=== PATIENT | male | born 1995 | race Two or more races ===

== ENCOUNTER 2023-09-27 10:31 | Emergency (ER) | payer OTHER, SELFPAY ==
[2023-09-27 10:40] VITALS: BP 141/96; PULSE 72; RESP 18; TEMP 36.2; O2SAT 97; BMI 26.6
[2023-09-27 13:01] LABS: MANUAL DIFF FLAG NO
[2023-09-27 13:02] LABS: Basophils Absolute Auto 0.1 X10*3/uL (0.0-0.2); Basophils Percent Auto 0.7 % (0-2); Eosinophils Absolute Auto 0.3 X10*3/uL (0.0-0.4); Eosinophils Percent Auto 3.9 % (0-4); Hematocrit 46.8 % (42.0-52.0); Imm Gran Abs Auto 0.11 X10*3/uL (0.00-0.03); Imm Gran Pct Auto 1.4 % (0.0-0.4); Lymphocytes Absolute Auto 2.5 X10*3/uL (1.2-4.9); Mean Corpuscular HGB Conc 34.2 g/dl (31.0-36.0); Mean Corpuscular Hemoglobin 31.6 pg (27.0-33.0); Mean Corpuscular Volume 92.3 fL (80.0-98.0); Mean Platelet Volume 9.5 fL (9.4-12.4); Monocytes Absolute Auto 0.6 X10*3/uL (0.1-1.2); Monocytes Percent Auto 7.5 % (2-11); Neutrophils Absolute Auto 4.1 x10*3/uL (2.0-8.3); Neutrophils Percent Auto 53.5 % (45-73); Platelet Count 284 X10*3/uL (160-400); Red Blood Count 5.07 X10*6/uL (4.60-5.80); Red Cell Distribution Width 11.8 % (11.0-16.0); White Blood Count 7.6 X10*3/uL (4.8-10.8)
--- NOTE | 2023-09-27 13:18 | ED_ITS ---
HPI - General Adult General Chief complaint: Skin/Abscess/Foreign Body Stated complaint: swollen face Time Seen by Provider: 09/27/23 11:47 Source: patient Mode of arrival: ambulatory Limitations: no limitations History of Present Illness ED Provider: ANA BOWLES PA-C HPI narrative: 27 year old male with no significant pmhx presents to the ED today for evaluation of facial swelling x2 days. Report pruritic facial rash that began yesterday. He has been taking benadryl at home with minimal relief. His last dose was a few hours prior to arrival in ED. Denies known allergies. Denies new soaps/ lotions/ detergents. Denies new medications/ recent medication changes. Admits to being outdoors in a wooded area over the weekend. He denies any known tick or insect bites. Additionally endorses fishing in an area noted to have poison nimo. He is unsure of whether or not he came into contact with this. Admits to small area of itchy bumps to his right ring finger. Denies fever, chills, tongue discomfort, dyspnea, sob, wheezing, throat closing sensation, N/V, rashes elsewhere. Related Data Previous Rx's ?Medication ?Instructions ?Recorded amoxicillin 875 mg-potassium 1 tab PO Q12H 7 days #14 tabs 09/27/23 clavulanate 125 mg tablet diphenhydramine HCl 50 mg tablet 50 mg PO Q8H PRN itching #14 tabs 09/27/23 (Benadryl Allergy) prednisone 10 mg tablet See Taper PO DIRECTED #12 tabs 09/27/23 Allergies Allergy/AdvReac Type Severity Reaction Status Date / Time No Known Allergies Allergy Verified 09/27/23 10:46 [No Known Allergies*] Review of Systems 2 Review of Systems: Constitutional: No fever, chills, fatigue, night sweats, weight changes ENT/Mouth: No ear pain, hearing loss, nasal congestion, sinus pain, rhinorrhea, sore throat, +facial swelling Eyes: No eye pain, swelling, redness, vision changes, discharge Cardio: No chest pain, palpitations, SANDERS, orthopnea, peripheral edema Pulm: No SOB, cough, sputum, wheezing, dyspnea, hemoptysis GI: No nausea, vomiting, hematemesis, abdominal pain, diarrhea, constipation, hematochezia, melena : No irregular bleeding, dysuria, frequency, urgency, hesitancy, hematuria, flank pain, urinary flow changes, urinary incontinence or retention MSK: No back pain, neck pain, joint pain, myalgias Skin: No lesions, +rashes Neuro: No weakness, numbness, paresthesias, LOC, dizziness, headache Psych: No anxiety/panic, depression, SI/HI, AH/VH All other systems reviewed and are negative. [facility] Past Medical History Attestation statement: The following information was validated with the patient. Source: old records reviewed and nursing notes reviewed Social History Social History Alcohol intake: current Alcohol intake frequency: a few times a week Smoked in Last 30 Days: Yes Any prior treatment program specific to substance use: No Advance Directives: No Do you have a plan to hurt others: No Plan Physical Exam ED Vital Signs: Vital Signs - 24 hr 09/27/23 10:40 09/27/23 14:00 09/27/23 15:36 Temperature 97.2 F 97.3 F 98.0 F Pulse Rate 72 73 73 Respiratory Rate 18 15 16 Blood Pressure 141/96 H 149/100 H 152/87 H Pulse Oximetry 97 100 100 Oxygen Delivery Method Room Air Room Air Room Air BMI result Body Mass Index 26.6 Patient slightly hypertensive, vitals otherwise wnl. not hypoxic. Const General: cooperative, healthy appearing, comfortable and no acute distress Orientation/consciousness: patient oriented x3 Limitations: no limitations HENMT Other: + see photo below Ears: hearing grossly normal bilaterally Mouth: Normal oral and palatal mucosa present, lip normal and tongue normal Throat: Yes posterior oropharynx normal Eyes Other: + refer to photo below + noted bilateral periorbital swelling with erythema and excoriations. no ocular involvement. no conjunctival injection. EOMs intact without pain. Neck Neck: Yes normal visual inspection and Yes full ROM Resp Effort & Inspection: normal respiratory effort and able to speak in complete sentences Auscultation: clear to auscultation bilaterally Cardio Rate: regular rate Rhythm: regular rhythm GI Inspection: Yes normal to inspection Palpation (GI): Soft to palpation and nontender Skin Other: + refer to photo above. noted erythematous rash noted to face with excoriations. no sloughing. no involvement of mucous membranes, webbed spaces, palms/ soles. no target lesions. no dermatomal pattern. Neuro General: patient oriented x3 Course Course Course Narrative: 1520-- CBC without leukocytosis or left shift. no anemia, h&h stable. no eosinophilia. chemistry without acute electrolyte abnormality requiring intervention. lyme/ tick panel pending. > on re-evaluation, there has been improvement in facial swelling following pepcid/benadryl/solumedrol. erythema has resolved. concern for allergic reaction vs poison nimo. i do not suspect preorbital or orbital cellulitis. at this time i feel patient is stable for discharge which he is agreeable with. will send patient home with prednisone taper, benadryl and augmentin for coverage. Patient has remained stable throughout ED visit today. Discussed worrisome signs and symptoms and when to return to the ED. All questions answered at this time. Patient is agreeable with disposition and stable for discharge. Medications Administered Discontinued Medications Generic Name Dose Route Start Last Admin Trade Name Freq PRN Reason Stop Dose Admin Diphenhydramine HCl 25 mg 09/27/23 12:29 09/27/23 13:44 Diphenhydramine Hcl 50 Mg/Ml Vial IVPUSH 09/27/23 12:30 25 mg ONCE ONE Administration Famotidine 20 mg 09/27/23 12:29 09/27/23 13:44 Famotidine/Pf 20 Mg/2 Ml Vial IVPUSH 09/27/23 12:30 20 mg ONCE ONE Administration Methylprednisolone Sodium Succinate 125 mg 09/27/23 12:29 09/27/23 13:44 Methylprednisolone Sod Succ 125 Mg/2 Ml Vial IVPUSH 09/27/23 12:30 125 mg ONCE ONE Administration Medical Decision Making Medical Decision Making [facility] Narrative: 27 year old male with no significant pmhx presents to the ED today for evaluation of facial swelling x2 days. Patient slightly hypertensive, vitals otherwise wnl. He is nontoxic appearing and in NAD. On exam, noted erythematous rash noted to face with excoriations. no sloughing. no involvement of mucous membranes, webbed spaces, palms/ soles. no target lesions. no dermatomal pattern. no ocular involvement. no conjunctival injection. EOMs intact without pain. lungs are CTA bilaterally. airway patent. posterior oropharynx wnl. tongue and lips normal. Differential diagnosis includes anemia, electrolyte abnormality, allergic reaction, poison nimo, lyme, tick bourne illness. Unlikely pre orbital or orbital cellulitis. Unlikely SJS/TEN, medication reaction, herpes zoster/ simplex, HFM disease, anaphylaxis, angioedema. Plan for basic labs, meds, re-evaluation. Differential Diagnosis Differential Diagnoses: The differential diagnosis associated with the presentation includes as above Admission/Observation Not indicated Lab Data MDM Lab Attestation statement: I reviewed the patient's lab results. as above 09/27/23 12:49 09/27/23 12:49 Labs: Lab Results 09/27/23 Range/Units 12:49 WBC 7.6 (4.8-10.8) X10*3/uL RBC 5.07 (4.60-5.80) X10*6/uL Hgb 16.0 (14.0-18.0) g/dl Hct 46.8 (42.0-52.0) % MCV 92.3 (80.0-98.0) fL MCH 31.6 (27.0-33.0) pg MCHC 34.2 (31.0-36.0) g/dl RDW 11.8 (11.0-16.0) % Plt Count 284 (160-400) X10*3/uL MPV 9.5 (9.4-12.4) fL Immature Gran % (Auto) 1.4 H (0.0-0.4) % Neut % (Auto) 53.5 (45-73) % Lymph % (Auto) 33.0 (20-40) % [place] % (Auto) 7.5 (2-11) % Eos % (Auto) 3.9 (0-4) % Baso % (Auto) 0.7 (0-2) % Lymph # (Auto) 2.5 (1.2-4.9) X10*3/uL [place] # (Auto) 0.6 (0.1-1.2) X10*3/uL Eos # (Auto) 0.3 (0.0-0.4) X10*3/uL Baso # (Auto) 0.1 (0.0-0.2) X10*3/uL Abs Immat Gran (auto) 0.11 H (0.00-0.03) X10*3/uL Absolute Neuts (auto) 4.1 (2.0-8.3) x10*3/uL Absolute Nucleated RBC 0.000 (0.0-0.012) X10*3/uL Nucleated RBC % (auto) 0.0 (0.0-0.2) /100WBC Sodium 139 (135-145) mmol/L Potassium 4.3 (3.3-5.1) mmol/L Chloride 106 (96-108) mmol/L Carbon Dioxide 24 (22-29) mmol/L Anion Gap 13 (12-20) BUN 13 (9-16) mg/dL Creatinine 0.96 (0.5-1.4) mg/dL Estim Creat Clear Calc 113.8 Estimated GFR > 60 Random Glucose 100 (60-115) mg/dL Calcium 9.1 (8.4-10.2) mg/dL Magnesium 2.2 (1.6-2.6) mg/dL External Record Review External record reviewed: Inpatient record Prescription Management I considered prescription management with: Antibiotic (augmentin) and Other (benadryl, prednisone) Social Determinants Patient?s care significantly limited by Social Determinants of Health including: Other Social Determinant of Health Critical Care Time Critical Care Time Critical Care Time: No Discharge Plan Discharge Clinical Impression: Facial swelling Patient Disposition: Home, Self-Care Instructions: Poison Nimo (ED), Allergies (ED), Cold Compress or Soak (ED), Allergy Testing (ED) Additional Instructions: Your blood work today is reassuring. Your blood was sent to the lab to check for lyme/ tick bourne pathology. You will be contacted with any abnormal results. The etiology of your facial swelling is unclear however improved with medications in ED today. A steroid taper of prednisone has been sent to your pharmacy. Take 40mg (4 tabs) x3 days Take 30mg (3 tabs) x3 days Take 20mg (2 tabs) x3 days Take 10mg (1 tab) x3 days Continue taking benadryl q8 hours for the next few days to help with swelling. Augmentin is an antibiotic that has been sent to your pharmacy for you to take for the next 7 days. take this to completion. Follow up with PCP. Return with new or worsening symptoms. In the case of an emergency call 911. Prescriptions: New prednisone 10 mg tablet See Taper PO DIRECTED Qty: 12 0RF Taper: Prednisone 40 mg daily for 3 Days and 0 Hour 30 mg daily for 3 Days and 0 Hour 20 mg daily for 3 Days and 0 Hour 10 mg daily for 3 Days and 0 Hour Rx Instructions: Take 40mg (4 tabs) for 3 days, 30mg (3 tabs) for 3 days, 20mg (2 tabs) for 3 days, and 10mg (1 tab) for 3 days. Benadryl Allergy 50 mg tablet 50 mg PO Q8H PRN (Reason: itching) Qty: 14 0RF amoxicillin-pot clavulanate 875-125 mg tablet 1 tab PO Q12H 7 Days Qty: 14 0RF Referrals: [facility] [Provider Group] [facility] [Provider Group] Vitor Meza MD [Physician] - Interventions: ED Discharge Assessment Last Done: 09/27/23 15:36 Discharge Date/Time: 09/27/23 15:37 Print Language: Malay
[2023-09-27 13:19] LABS: Anion Gap 13 (12-20); Blood Urea Nitrogen 13 mg/dL (9-16); Calcium 9.1 mg/dL (8.4-10.2); Carbon Dioxide 24 mmol/L (22-29); Chloride 106 mmol/L (96-108); Creatinine Clr Calc Pharmacy 113.8; Estimated Glomerular Filt Rate > 60; Glucose Random 100 mg/dL (60-115); Magnesium 2.2 mg/dL (1.6-2.6); Potassium 4.3 mmol/L (3.3-5.1); Sodium 139 mmol/L (135-145)
[2023-09-27] MEDS: methylPREDNISolone Sod Succ 125 MG/2 ML VIAL IVPUSH (13:44)
[2023-09-27] MEDS: Famotidine/PF 20 MG/2 ML VIAL IVPUSH (13:44)
[2023-09-27] MEDS: diphenhydrAMINE HCL 50 MG/ML VIAL 25 MG IVPUSH (13:44)
[2023-09-27 14:00] VITALS: BP 149/100; PULSE 73; RESP 15; TEMP 36.3; O2SAT 100
--- NOTE | 2023-09-27 15:35 | PC.NURSE ---
Report taken from Hemanth RN assumed care of pt at this time. PA to bedside for reeval, pt cleared for dc home with scripts.
[2023-09-27 15:36] VITALS: BP 152/87; PULSE 73; RESP 16; TEMP 36.7; O2SAT 100
[2023-09-28 18:02] LABS: Lyme Abs Screen <0.90 index
[2023-09-29 06:48] LABS: A. Phagocytphilium DNA,RT-PCR NOT DETECTED (NOT DETECTED); Babesia Microti DNA, RT-PCR NOT DETECTED (NOT DETECTED); Borrelia Miyamotoi,DNA RT-PCR NOT DETECTED (NOT DETECTED); E.Chaffeensis DNA RT-PCR NOT DETECTED (NOT DETECTED); Lyme(Borrelia ssp)DNA RT-PCR NOT DETECTED (NOT DETECTED)
== END 2023-09-27 15:37 | disposition home or self-care (01) ==
PROVIDERS: Physician Assistant Medical; Emergency Provider Emergency Medicine Emergency Medical Services
DX: L29.8 Other pruritus (principal); R22.0 Localized swelling, mass and lump, head; L53.8 Other specified erythematous conditions; Z79.899 Other long term (current) drug therapy
CPT/HCPCS: 36415; 80048; 83735; 85025; 86617; 86618; 87468; 87469; 87478; 87484; 87798; 96374; 96375; 99284; J1200; J2919